=== PATIENT | female | born 1935 | race Caucasian/White ===

== ENCOUNTER 2017-07-12 01:54 | Emergency (ER) | payer BC, MEDICARE ==
[2017-07-12 02:46] LABS: PTT 29.7 SEC (22.9-36.1)
[2017-07-12 02:47] LABS: Prothrombin Time 12.7 SEC (12.0-14.7)
[2017-07-12 03:01] LABS: #Eosinphils 0.2 thou/uL (0.0-0.7); #Lymphocytes 1.6 thou/uL (1.20-3.40); #Monocytes 0.7 thou/uL (0.11-0.59); #Neutrophils 4.3 thou/uL (1.40-6.50); %Basophils 0.5 % (0.0-1.0); %Eosinophils 2.6 % (0.0-10.0); %Lymphocytes 22.9 % (21.0-51.0); %Monocytes 10.9 % (0.0-10.0); Hematocrit 38.3 % (36.0-47.0); Mean Platelet Volume 6.8 fL (7.4-10.4); Red Blood Cell (RBC) Count 4.26 mill/uL (4.20-5.40); White Blood Cell (WBC) Count 6.8 thou/uL (4.8-10.8)
[2017-07-12 03:03] LABS: ALT (SGPT) 21 U/L (8-55); AST (SGOT) 23 U/L (5-34); Alkaline Phosphatase 74 U/L (40-150); Anion Gap 13 mmol/L (10-20); BUN (Urea Nitrogen) 23 mg/dL (9.8-20.1); Bilirubin, Total 0.4 mg/dL (0.2-1.2); CK (CPK) 93 U/L (29-168); Calc. Creatinine Clearance 0 mL/min (70-130); Calcium 9.5 mg/dL (7.8-10.44); Carbon Dioxide 24 mmol/L (23-31); Chloride 105 mmol/L (98-107); Estimated GFR-MDRD 58; Globulin 2.8 g/dL (2.4-3.5); Protein, Total 6.6 g/dL (6.0-8.3)
[2017-07-12] MEDS ORDERED: HYDROcodone/Acetaminophen 5/325 mg Tablet ONE (03:33)
--- NOTE | 2017-07-12 08:18 | CT ---
PRELIMINARY REPORT/[facility]/EMERGENCY AFTER HOURS PROCEDURE: EXAM: CT Maxillofacial Without Intravenous Contrast EXAM DATE/TIME: 07/12/2017 2:42 AM CLINICAL HISTORY: 82 years old, female; Injury or trauma; Fall; Initial encounter; Abrasion; Ocular (eye or eyeball); R ight; Patient HX: F82 presented to ed C/O r ankle pain, r shoulder pain, and r rib pain S/P falling e arlier today. Pt was walking at [employer] with an umbrella and cane in hand. Pt had d ropped her cane, tried to pick it up, and fell over landing on her face. TECHNIQUE: Axial computed tomography images of the face without intravenous contrast. Coronal and sagittal reformatted images were created and reviewed. COMPARISON: No relevant prior studies available. FINDINGS: Bones/joints: Hyperostosis frontalis interna. Degenerative changes involving the spine. No acute frac ture. Soft tissues: Right facial soft tissue injury. Orbits: No evidence of orbital hemorrhage. Sinuses: Unremarkable. No air-fluid levels. IMPRESSION: No acute fracture. Thank you for allowing us to participate in the care of your patient. Dictated and Authenticated by: Andres Farnsworth MD 07/12/2017 2:57 AM Central Time ([place] & [place]) FINAL REPORT CT OF FACIAL BONES: Date: 07/12/17 COMPARISON: None. HISTORY: Right-sided pain, fall, trauma, injury. FINDINGS: I agree with the preliminary report given by Jackie. Imaged paranasal sinuses/mastoid air cells are robert ssly unremarkable. The nasal bones, zygomatic arches, and pterygoid plates appear intact. The orbital floor and medial orbital wall appears intact bilaterally as well. Multilevel upper cervic al spine degenerative change noted. Temporomandibular joints appear normally located. No mandibular fracture seen. There is soft tissue s welling in the infraorbital region on the right. IMPRESSION: Soft tissue swelling with no acute osseous abnormality. POS: [facility]
--- NOTE | 2017-07-12 08:20 | CT ---
PRELIMINARY REPORT/[facility]/EMERGENCY AFTER HOURS PROCEDURE: EXAM: CT Head Without Intravenous Contrast EXAM DATE/TIME: 07/12/2017 2:44 AM CLINICAL HISTORY: 82 years old, female; Injury or trauma; Fall; Initial encounter; Abrasion; Face; Patient HX: F82 pres ented to ed C/O r ankle pain, r shoulder pain, and r rib pain S/P falling earlier today. Pt was walki ng at [employer] with an umbrella and cane in hand. Pt had dropped her cane, tried to pick it up, and fell over landing on her face TECHNIQUE: Axial computed tomography images of the head/brain without intravenous contrast. COMPARISON: No relevant prior studies available. FINDINGS: Brain: Decreased attenuation of the supratentorial white matter is likely secondary to chronic microv ascular ischemia. Chronic right frontal infarction. No hemorrhage. Ventricles: Ventricular and subarachnoid spaces are age appropriate. Bones/joints: Hyperostosis frontalis interna. No acute fracture. Soft tissues: Incomplete visualization of right facial soft tissue injury. Vasculature: Intracranial vascular calcification. Sinuses: Unremarkable as visualized. No acute sinusitis. Mastoid air cells: Unremarkable as visualized. No mastoid effusion. IMPRESSION: No acute intracranial abnormality. Thank you for allowing us to participate in the care of your patient. Dictated and Authenticated by: Andres Farnsworth MD 07/12/2017 2:59 AM Central Time ([place] & [place]) FINAL REPORT HEAD CT WITHOUT CONTRAST: Date: 07/12/17 COMPARISON: 11/24/12. HISTORY: Right-sided pain, trauma, fall. FINDINGS: I agree with the preliminary report given by Jackie. There is soft tissue swelling in the infraorbital region on the right, incompletely imaged. The visualized paranasal sinuses/mastoid air cells are well aerated. No displaced calvarial fracture, intracranial hemorrhage, midline shift, or mass effect. 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 IMPRESSION: Soft tissue swelling in the right infraorbital region. No displaced calvarial fracture or intracrania l hemorrhage. POS: [facility]
--- NOTE | 2017-07-12 08:25 | RAD ---
THREE VIEWS OF RIGHT SHOULDER: DATE: 07/12/17. COMPARISON: None. HISTORY: Right-sided pain, fall. FINDINGS: There is mild degenerative change involving the right acromioclavicular joint and glenohumeral joint. There is no widening of the AC or CC interspace. There is inferior osteophyte formation of the acr omion. No dislocation seen. IMPRESSION: Degenerative changes with no acute fracture or evidence of dislocation. POS: [facility]
--- NOTE | 2017-07-12 08:47 | RAD ---
PORTABLE UPRIGHT FRONTAL CHEST RADIOGRAPH: DATE: 07/12/17. COMPARISON: 11/27/12. HISTORY: Right-sided pain, fall. FINDINGS: There is postoperative hardware associated with the proximal left humerus. There is no pneumothorax, pleural fluid, focal consolidation, or alveolar edema. Heart and mediastinal contours are stable. IMPRESSION: No acute findings. POS: [facility]
--- NOTE | 2017-07-12 09:15 | RAD ---
RIGHT ANKLE 3 VIEWS: FINDINGS: Minimal diffuse soft tissue swelling. 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 Prominent calcaneal Achilles and plantar enthesophytes. Heterogeneous bone demine ralization. No evidence for an acute fracture. 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 Minimal soft tissue swelling. Farrukh ne demineralization. No evidence for an acute fracture. POS: [facility]
== END 2017-07-12 03:11 | disposition home or self-care (01) ==
LOC: ERS 01:54
DX: S82.831A Other fracture of upper and lower end of right fibula, initial encounter for closed fracture (principal); S00.83XA Contusion of other part of head, initial encounter; H05.221 Edema of right orbit; W18.30XA Fall on same level, unspecified, initial encounter
CPT/HCPCS: 36415; 70450; 70486; 71010; 80053; 82550; 85025; 85610; 85730

== ENCOUNTER 2025-06-24 13:20 | Inpatient (IN) | payer BC, MEDICARE ==
[~2025-06-24 13:20] MED LIST: Iopamidol-370 76% 500 ML MDV (1 ML CHARGE) ONE
[2025-06-24 13:59] LABS: CAUTI Indications for Culture Dysuria,urgency,freq; Glucose, Urine (Dipstick) Normal (Negative); Leukocyte 75 Leu/uL (Negative); Protein, Urine (Dipstick) Negative (Neg-Trace); RBC/HPF 0-3 HPF (0-3); Specific Gravity, Urine 1.022 (1.002-1.036)
[2025-06-24 14:01] LABS: #Basophils 0.03 10x3/uL (0.0-0.2); #Eosinophils 0.18 10x3/uL (0.0-0.7); #Monocytes 0.58 10x3/uL (0.11-0.59); #Neutrophils 4.15 10x3/uL (1.40-6.50); %Basophils 0.5 % (0.0-1.0); %Eosinophils 2.8 % (0.0-10.0); %Lymphocytes 21.8 % (21.0-51.0); %Monocytes 9.1 % (0.0-10.0); %Neutrophils 65.5 % (42.0-75.0); Hematocrit 41.5 % (36.0-47.0); Hemoglobin 13.2 g/dL (12.0-16.0); Mean Corpuscular Hemoglobin 28.3 pg (27.0-31.0); Mean Corpuscular Volume 88.9 fL (78.0-98.0); Platelet Count 202 10x3/uL (130-400); Red Blood Cell (RBC) Count 4.67 mill/uL (4.20-5.40); White Blood Cell (WBC) Count 6.34 10x3/uL (4.8-10.8)
[2025-06-24 14:02] LABS: Bacteria/HPF 1+ HPF (None Seen)
[2025-06-24 14:04] LABS: Urine Culture Reflex No No
[2025-06-24 14:19] LABS: ALT (SGPT) 62 U/L (Less than 34); AST (SGOT) 39 U/L (11-34); Albumin 3.6 g/dL (3.1-4.5); Alkaline Phosphatase 111 U/L (40-110); Anion Gap 13 mmol/L (10-20); BUN (Urea Nitrogen) 24 mg/dL (9.8-20.1); Bilirubin, Total 0.4 mg/dL (0.3-1.2); Calc. Creatinine Clearance 0 mL/min (70-130); Calcium 9.4 mg/dL (7.8-10.44); Carbon Dioxide 23 mmol/L (23-31); Chloride 110 mmol/L (98-107); Globulin 3.3 g/dL (2.4-3.5); Glucose 146 mg/dL (83-110); Potassium 4.1 mmol/L (3.5-5.1); Sodium 142 mmol/L (136-145)
[2025-06-24] MEDS ORDERED: LevoFLOXacin 750 mg/D5W 150 ml Premix Bag ONE (15:25)
[2025-06-24] MEDS ORDERED: Senokot S 8.6-50 MG TAB PO PRN (18:27)
[2025-06-24] MEDS ORDERED: Acetaminophen 325 MG TAB PO PRN (18:27)
[2025-06-24] MEDS ORDERED: Glucagon 1 MG/ML KIT IM PRN (18:28)
[2025-06-24] MEDS ORDERED: Dextrose 50% Abboject 50 ML SYRINGE SLOW IVP PRN (18:28)
[2025-06-24 18:56] LABS: Magnesium 1.9 mg/dL (1.6-2.6)
[2025-06-24] MEDS: Fosfomycin 3 GM/Packet PO SCH (22:13)
[2025-06-24 22:14] VITALS: BMI 36.3
[2025-06-24] MEDS: Enoxaparin 100 MG (1 mL) SYRINGE SC SCH (22:24)
[2025-06-24] MEDS: Communication Order-Pharmacy FS ONE (22:24)
[2025-06-25 04:47] LABS: #Basophils 0.03 10x3/uL (0.0-0.2); #Eosinophils 0.19 10x3/uL (0.0-0.7); #Monocytes 0.52 10x3/uL (0.11-0.59); #Neutrophils 4.32 10x3/uL (1.40-6.50); %Basophils 0.5 % (0.0-1.0); %Eosinophils 3.0 % (0.0-10.0); %Lymphocytes 19.8 % (21.0-51.0); %Monocytes 8.2 % (0.0-10.0); %Neutrophils 68.0 % (42.0-75.0); Hematocrit 39.1 % (36.0-47.0); Hemoglobin 12.6 g/dL (12.0-16.0); Mean Corpuscular Hemoglobin 28.6 pg (27.0-31.0); Mean Corpuscular Volume 88.7 fL (78.0-98.0); Platelet Count 191 10x3/uL (130-400); Red Blood Cell (RBC) Count 4.41 mill/uL (4.20-5.40); White Blood Cell (WBC) Count 6.35 10x3/uL (4.8-10.8)
[2025-06-25 05:13] LABS: Anion Gap 14 mmol/L (10-20); BUN (Urea Nitrogen) 19 mg/dL (9.8-20.1); Calc. Creatinine Clearance 65 mL/min (70-130); Calcium 8.9 mg/dL (7.8-10.44); Carbon Dioxide 22 mmol/L (23-31); Chloride 108 mmol/L (98-107); Glucose 116 mg/dL (83-110); Potassium 4.0 mmol/L (3.5-5.1); Sodium 140 mmol/L (136-145)
[2025-06-25] MEDS: Aspirin 81 mg Enteric Coated Tablet PO SCH (08:47)
[2025-06-25] MEDS: Lisinopril 20 MG TAB PO SCH (08:48)
[2025-06-25] MEDS: Furosemide 40 MG (4 mL) VIAL SLOW IVP SCH (09:23)
[2025-06-25] MEDS: Rosuvastatin 20 MG TAB PO SCH (22:05)
[2025-06-26 04:44] LABS: #Basophils 0.04 10x3/uL (0.0-0.2); #Eosinophils 0.19 10x3/uL (0.0-0.7); #Monocytes 0.48 10x3/uL (0.11-0.59); #Neutrophils 3.56 10x3/uL (1.40-6.50); %Basophils 0.7 % (0.0-1.0); %Eosinophils 3.3 % (0.0-10.0); %Lymphocytes 25.6 % (21.0-51.0); %Monocytes 8.3 % (0.0-10.0); %Neutrophils 61.2 % (42.0-75.0); Hematocrit 39.7 % (36.0-47.0); Hemoglobin 12.7 g/dL (12.0-16.0); Mean Corpuscular Hemoglobin 28.3 pg (27.0-31.0); Mean Corpuscular Volume 88.4 fL (78.0-98.0); Platelet Count 200 10x3/uL (130-400); Red Blood Cell (RBC) Count 4.49 mill/uL (4.20-5.40); White Blood Cell (WBC) Count 5.81 10x3/uL (4.8-10.8)
[2025-06-26 05:09] LABS: Anion Gap 13 mmol/L (10-20); BUN (Urea Nitrogen) 24 mg/dL (9.8-20.1); Calc. Creatinine Clearance 51 mL/min (70-130); Calcium 8.9 mg/dL (7.8-10.44); Carbon Dioxide 25 mmol/L (23-31); Chloride 103 mmol/L (98-107); Glucose 116 mg/dL (83-110); Potassium 3.6 mmol/L (3.5-5.1); Sodium 137 mmol/L (136-145)
[2025-06-26] MEDS: Magnesium 2 GM/50 ML(in water) 2 GM in Premix 1 BAG IVPB SCH (15:25)
[2025-06-27] MEDS ORDERED: Nitroglycerin 0.4 MG TAB (25 Tab Bottle) SL PRN (00:30)
[2025-06-27 05:52] LABS: #Basophils 0.04 10x3/uL (0.0-0.2); #Eosinophils 0.11 10x3/uL (0.0-0.7); #Monocytes 0.82 10x3/uL (0.11-0.59); #Neutrophils 6.89 10x3/uL (1.40-6.50); %Basophils 0.4 % (0.0-1.0); %Eosinophils 1.2 % (0.0-10.0); %Lymphocytes 15.1 % (21.0-51.0); %Monocytes 8.8 % (0.0-10.0); %Neutrophils 74.0 % (42.0-75.0); Hematocrit 41.4 % (36.0-47.0); Hemoglobin 13.0 g/dL (12.0-16.0); Mean Corpuscular Hemoglobin 27.8 pg (27.0-31.0); Mean Corpuscular Volume 88.7 fL (78.0-98.0); Platelet Count 194 10x3/uL (130-400); Red Blood Cell (RBC) Count 4.67 mill/uL (4.20-5.40); White Blood Cell (WBC) Count 9.32 10x3/uL (4.8-10.8)
[2025-06-27 05:53] LABS: ALT (SGPT) 32 U/L (Less than 34); AST (SGOT) 25 U/L (11-34); Albumin 3.2 g/dL (3.1-4.5); Alkaline Phosphatase 90 U/L (40-110); Anion Gap 14 mmol/L (10-20); BUN (Urea Nitrogen) 16 mg/dL (9.8-20.1); Bilirubin, Total 0.5 mg/dL (0.3-1.2); Calc. Creatinine Clearance 61 mL/min (70-130); Calcium 8.8 mg/dL (7.8-10.44); Carbon Dioxide 23 mmol/L (23-31); Chloride 103 mmol/L (98-107); Globulin 3.2 g/dL (2.4-3.5); Glucose 124 mg/dL (83-110); Potassium 3.7 mmol/L (3.5-5.1); Sodium 136 mmol/L (136-145)
[2025-06-27] MEDS: Melatonin 3 MG TAB PO PRN (20:47)
[2025-06-28 05:27] LABS: #Basophils 0.04 10x3/uL (0.0-0.2); #Eosinophils 0.15 10x3/uL (0.0-0.7); #Monocytes 0.74 10x3/uL (0.11-0.59); #Neutrophils 4.61 10x3/uL (1.40-6.50); %Basophils 0.6 % (0.0-1.0); %Eosinophils 2.1 % (0.0-10.0); %Lymphocytes 21.9 % (21.0-51.0); %Monocytes 10.4 % (0.0-10.0); %Neutrophils 64.6 % (42.0-75.0); Hematocrit 38.9 % (36.0-47.0); Hemoglobin 12.5 g/dL (12.0-16.0); Mean Corpuscular Hemoglobin 28.3 pg (27.0-31.0); Mean Corpuscular Volume 88.0 fL (78.0-98.0); Platelet Count 178 10x3/uL (130-400); Red Blood Cell (RBC) Count 4.42 mill/uL (4.20-5.40); White Blood Cell (WBC) Count 7.13 10x3/uL (4.8-10.8)
[2025-06-28 05:45] LABS: Anion Gap 12 mmol/L (10-20); BUN (Urea Nitrogen) 17 mg/dL (9.8-20.1); Calc. Creatinine Clearance 59 mL/min (70-130); Calcium 8.6 mg/dL (7.8-10.44); Carbon Dioxide 23 mmol/L (23-31); Chloride 104 mmol/L (98-107); Glucose 127 mg/dL (83-110); Potassium 3.8 mmol/L (3.5-5.1); Sodium 135 mmol/L (136-145)
[2025-06-28] MEDS: Melatonin 3 MG TAB PO PRN (21:49)
[2025-06-29] MEDS: diphenhydrAMINE 50 MG/ML VIAL IVP PRN (19:52)
[2025-06-30 16:17] VITALS: BP 117/69; TEMP 98.2
[2025-06-30] MEDS ORDERED: Apixaban 5 MG TAB PO SCH (21:00)
== END 2025-06-30 18:39 | DRG 690 ==
LOC: ERS 13:20 → ERHOLD 16:11 → T4-B 21:07 → 2NO 06-25 10:30 → OBSVTOIN 06-25 11:44 → 2NO 06-26 15:00
PROVIDERS: ADMIT Internal Medicine; ATTEND Student in an Organized Health Care Education/Training Program
PROC: 3E03329 Introduction of Other Anti-infective into Peripheral Vein, Percutaneous Approach (ICD-10-PCS; principal; 2025-06-24)
PROC: XW0DXF5 Introduction of Other New Technology Therapeutic Substance into Mouth and Pharynx, External Approach, New Technology Group 5 (ICD-10-PCS; 2025-06-24)
DX: N39.0 Urinary tract infection, site not specified (principal); J90 Pleural effusion, not elsewhere classified; I48.91 Unspecified atrial fibrillation; E78.5 Hyperlipidemia, unspecified; Z86.73 Personal history of transient ischemic attack (TIA), and cerebral infarction without residual deficits; E11.9 Type 2 diabetes mellitus without complications; Z79.890 Hormone replacement therapy; Z88.0 Allergy status to penicillin; Z79.899 Other long term (current) drug therapy; Z79.82 Long term (current) use of aspirin; Z88.1 Allergy status to other antibiotic agents; N18.30 Chronic kidney disease, stage 3 unspecified; I12.9 Hypertensive chronic kidney disease with stage 1 through stage 4 chronic kidney disease, or unspecified chronic kidney disease; E83.42 Hypomagnesemia; B95.1 Streptococcus, group B, as the cause of diseases classified elsewhere; B96.89 Other specified bacterial agents as the cause of diseases classified elsewhere; Z88.2 Allergy status to sulfonamides
CPT/HCPCS: 36415; 36416; 70450; 71045; 71275; 80048; 80053; 81001; 83605; 83735; 83880; 84443; 84484; 85025; 87040; 87077; 87086; 87428; 93005; 93010; 93306; 94760; 96372; 96374; 96375; G0378; J1200; J1650; J1940; J1956; J3475; Q9967